=== PATIENT | male | born 1995 | race Caucasian/White ===

== ENCOUNTER 2018-08-01 15:30 | Emergency (ER) | payer OTHER | END 2018-08-01 16:30 | disposition home or self-care (01) | LOC: FTE 15:30 | DX: S09.90XA Unspecified injury of head, initial encounter (principal); S09.92XA Unspecified injury of nose, initial encounter; X58.XXXA Exposure to other specified factors, initial encounter; Y92.321 Football field as the place of occurrence of the external cause | CPT/HCPCS: 99282; Z7502 ==